=== PATIENT | female | born 1950 | race Caucasian/White ===

== ENCOUNTER → 2016-08-23 | Outpatient (CLI) | payer BC ==
[~2016-08-23] MED LIST: ACCUNEB DP0.63 MG/3 IH; ASA325 MG PO; ATORVASTATIN CA80 MG PO; BREO ELLIP1 PUFF/DOS IH; EFFEXOR XR DPS150 MG PO; MACROBID100 MG PO; MAXZIDE PO; MICRO-K DPS10 MEQ PO; NORVASC2.5 MG PO; VITAMIN B-12500 MCG PO; ZESTRIL DPS5 MG PO
== END | disposition home or self-care (01) ==
LOC: RAD.S 09:21 → PTH.S 09:30
DX: C34.90 Malignant neoplasm of unspecified part of unspecified bronchus or lung (principal); I10 Essential (primary) hypertension; Z98.890 Other specified postprocedural states